=== PATIENT | female | born 1970 | race Hispanic/Latino ===

== ENCOUNTER 2019-01-01 12:42 | Emergency (ER) | payer BC, OTHER ==
[2019-01-01] MEDS ORDERED: BUPIVACAINE/PF 0.5% 30ML VIAL ONE (12:58)
[2019-01-01] MEDS ORDERED: LIDOCAINE HCL 1% 20 ML VIAL ONE (12:59)
[2019-01-01] MEDS ORDERED: CEFTRIAXONE SODIUM 1 GM ONE (13:45)
[2019-01-01] MEDS ORDERED: TETANUS/DIPHTHERIA TOXOID [ADULT] 0.5 ML VIAL IM ONE (13:45)
[2019-01-01] MEDS ORDERED: LIDOCAINE HCL-MPF 1% 2ML VIAL ONE (13:45)
== END 2019-01-01 14:43 | disposition home or self-care (01) ==
LOC: EDH 12:42
DX: S61.233A Puncture wound without foreign body of left middle finger without damage to nail, initial encounter (principal); Z72.0 Tobacco use; W45.8XXA Other foreign body or object entering through skin, initial encounter; Y93.G9 Activity, other involving cooking and grilling; Y92.69 Other specified industrial and construction area as the place of occurrence of the external cause; Y99.8 Other external cause status
CPT/HCPCS: 64450; 73140; 90471; 90714; 96372; 99284; J0696; J3490 ×2

== ENCOUNTER 2019-10-19 06:44 | Emergency (ER) | payer OTHER ==
[2019-10-19] MEDS ORDERED: DICYCLOMINE HCL 10 MG/ML 2ML AMP IM ONE (07:16)
[2019-10-19 07:44] LABS: BASOPHILS % (AUTO) 0.2 % (0.0-5.0); EOSINOPHILS % (AUTO) 2.8 % (0.0-8.0); HEMATOCRIT 39.5 % (36-48); LYMPHOCYTES % (AUTO) 26.5 % (21.0-51.0); MEAN CORPUSCULAR HGB CONC 33.9 g/dL (32.0-36.0); MEAN CORPUSCULAR VOLUME 88.6 fL (79-99); MONOCYTES % (AUTO) 5.8 % (3.0-13.0); NEUTROPHILS % (AUTO) 64.5 % (40.0-77.0); PLATELET COUNT (AUTO) 244 K/uL (130-400); RED BLOOD CELL COUNT(AUTO) 4.46 MIL/uL (4.00-5.50); RED CELL DISTRIBUTION WIDTH 12.3 % (11.0-15.5)
[2019-10-19 07:54] LABS: CREATININE 0.8 mg/dL (0.5-1.5); POTASSIUM 3.8 mmol/L (3.5-5.1)
[2019-10-19 08:00] LABS: ALBUMIN 3.6 g/dL (3.5-5.0); BILIRUBIN,TOTAL 0.3 mg/dL (0.2-1.0); TOTAL PROTEIN, SERUM 7.4 g/dL (6.0-8.3)
== END 2019-10-19 08:34 | disposition home or self-care (01) ==
LOC: EDH 06:44
DX: A09 Infectious gastroenteritis and colitis, unspecified (principal); M19.90 Unspecified osteoarthritis, unspecified site; Z98.890 Other specified postprocedural states
CPT/HCPCS: 36415; 80053; 85025; 96372; 99283; J0500

== ENCOUNTER 2021-01-23 20:58 | Emergency (ER) | payer OTHER ==
[~2021-01-23] VITALS: Ht 165.1 cm; Wt 90.7 kg
[2021-01-23 20:59] VITALS: BP 119/69
[2021-01-23 22:42] VITALS: BP 122/70
[2021-01-23 22:49] LABS: BASOPHILS % (AUTO) 0.4 % (0.0-5.0); HEMATOCRIT 36.4 % (36-48); MEAN CORPUSCULAR HEMOGLOBIN 30.6 pg (27.0-33.0); MEAN CORPUSCULAR HGB CONC 33.2 g/dL (32.0-36.0); MEAN CORPUSCULAR VOLUME 91.9 fL (79-99); MONOCYTES % (AUTO) 5.8 % (3.0-13.0); NEUTROPHILS % (AUTO) 54.6 % (40.0-77.0); PLATELET COUNT (AUTO) 227 K/uL (130-400); RED BLOOD CELL COUNT(AUTO) 3.96 MIL/uL (4.00-5.50); RED CELL DISTRIBUTION WIDTH 12.6 % (11.0-15.5); WHITE BLOOD COUNT (AUTO) 5.7 K/uL (4.8-10.8)
[2021-01-23] MEDS ORDERED: 0.9%NACL 1000ML 1,000 ML IV ONE ×2 (22:52→23:00)
[2021-01-23 22:57] LABS: APPEARANCE,URINE Turbid (CLEAR); BILIRUBIN,URINE Negative (NEGATIVE); COLOR,URINE Yellow (YELLOW); GLUCOSE, URINE (UA) Negative (NEGATIVE); KETONES,URINE Negative (NEGATIVE); LEUKOCYTE ESTERASE ,URINE Small (NEGATIVE); NITRATE,URINE Positive (NEGATIVE); OCCULT BLOOD,URINE Negative (NEGATIVE); PH,URINE 6.5 (5.0-8.0); PROTEIN,URINE Negative (NEGATIVE)
[2021-01-23 22:59] LABS: HCG,QUAL RESULT NEGATIVE (NEGATIVE)
[2021-01-23] MEDS ORDERED: MORPHINE 4 MG SYG IVP ONE (23:00)
[2021-01-23] MEDS ORDERED: ONDANSETRON 4MG INJ IVP ONE (23:00)
[2021-01-23 23:02] LABS: CREATININE 0.6 mg/dL (0.5-1.5); POTASSIUM 3.9 mmol/L (3.5-5.1)
[2021-01-23 23:04] LABS: ALBUMIN 3.5 g/dL (3.5-5.0); BILIRUBIN,TOTAL 0.3 mg/dL (0.2-1.0); TOTAL PROTEIN, SERUM 6.7 g/dL (6.0-8.3)
[2021-01-23 23:12] LABS: AMORPHOUS SEDIMENT,UR Moderate /LPF (None Seen); BACTERIA,URINE Many /HPF (None Seen); RBC,URINE None Seen /HPF (0-1)
[2021-01-23] MEDS ORDERED: IOHEXOL-350 75 ML VIAL IV ONE (23:19)
[2021-01-23] MEDS ORDERED: CEFTRIAXONE 1G VIAL IVP ONE (23:30)
[2021-01-24] MEDS ORDERED: CEFTRIAXONE 1G VIAL ONE (00:48)
[2021-01-24] MEDS ORDERED: DICY20TA2 PO (01:09)
[2021-01-24] MEDS ORDERED: MELO7.5T12 PO (01:09)
[2021-01-24] MEDS ORDERED: CYCL10TA7 PO (01:09)
[2021-01-24 01:46] VITALS: BP 117/68
== END 2021-01-24 02:00 | disposition home or self-care (01) ==
LOC: EDH 20:58
DX: K59.00 Constipation, unspecified (principal); N88.8 Other specified noninflammatory disorders of cervix uteri; E66.9 Obesity, unspecified; Z79.1 Long term (current) use of non-steroidal anti-inflammatories (NSAID)
CPT/HCPCS: 36415; 74177; 80053; 81001; 81025; 83690; 85025; 87077; 87088; 87186; 96361; 96374; 96375 ×2; 99285; J0696; J2270; J2405; J7030; Q9967

== ENCOUNTER 2022-05-17 20:36 | Emergency (ER) | payer OTHER ==
[~2022-05-17] VITALS: Ht 165.1 cm; Wt 97.5 kg
[~2022-05-17 20:36] MED LIST: CYCL-309 PO; DICY20TA2 PO; MELO7.5T12 PO
[2022-05-17 21:23] LABS: BASOPHILS % (AUTO) 0.2 % (0.0-5.0); EOSINOPHILS % (AUTO) 4.5 % (0.0-8.0); HEMATOCRIT 37.7 % (36-48); LYMPHOCYTES % (AUTO) 37.6 % (21.0-51.0); MEAN CORPUSCULAR HEMOGLOBIN 29.3 pg (27.0-33.0); MEAN CORPUSCULAR HGB CONC 34.2 g/dL (32.0-36.0); MEAN CORPUSCULAR VOLUME 85.7 fL (79-99); MONOCYTES % (AUTO) 6.3 % (3.0-13.0); PLATELET COUNT (AUTO) 231 K/uL (130-400); WHITE BLOOD COUNT (AUTO) 5.1 K/uL (4.8-10.8)
[2022-05-17 21:35] LABS: CREATININE 0.7 mg/dL (0.5-1.5); POTASSIUM 3.7 mmol/L (3.5-5.1)
[2022-05-17 21:44] LABS: ALBUMIN 3.6 g/dL (3.5-5.0); TOTAL PROTEIN, SERUM 6.9 g/dL (6.0-8.3)
[2022-05-17] MEDS ORDERED: PANTOPRAZOLE 40 MG/VIAL IVP STA (23:01)
[2022-05-17] MEDS ORDERED: LIDOCAINE HCL 2% VISCOUS 15 ML UDCUP PO ONE (23:30)
[2022-05-17] MEDS ORDERED: MAG/ALUM/SIMETH 30 ML UDCUP PO ONE (23:30)
[2022-05-18 01:01] VITALS: BP 124/85
[2022-05-18] MEDS ORDERED: PANT40TA54 PO (02:42)
== END 2022-05-18 02:49 | disposition home or self-care (01) ==
LOC: EDH 20:36
DX: K29.70 Gastritis, unspecified, without bleeding (principal); Z79.899 Other long term (current) drug therapy
CPT/HCPCS: 99285; 74176; 96374; 71045; 84484; 80053; 85025; 36415; 93005; C9113

== ENCOUNTER 2025-07-01 19:09 | Emergency (ER) | payer BC, OTHER ==
[~2025-07-01] VITALS: Ht 165.1 cm; Wt 1457.2 kg
[~2025-07-01 19:09] MED LIST changes: +PANT20TA PO; +PANT40TA54 PO
[2025-07-01 20:30] VITALS: BP 146/88; PULSE 72; RESP 18; TEMP 97.7; O2SAT 99
--- NOTE | 2025-07-01 21:09 | ERN ---
ED Note History of Present Illness Stated Complaint: APPROX 3 HRS AGO BILAT FOOT PAIN Chief Complaint: Lower Extremity Pain/Injury Time Seen by MD: 19:22 Dictation: This is a 54-year-old overweight female who presented to the emergency room complaining of chronic bilateral foot pain but got worse when she picked up and transported a huge box of tamales. History of any fall no deformity patient is able to ambulate without any problems. She takes tramadol for the pain and she already took 8 before coming to the ER. No history of any swelling. No feeling cold. No tingling numbness. Temperature 97.7 pulse 72 respirations 18 blood pressure 146/88 with a pulse oximetry of 99% on room air Allergies: Coded Allergies: No Known Allergies (Unverified Allergy, Unknown, 01/01/19) No Known Drug Allergies (Unverified Allergy, Unknown, 04/02/19) Home Meds Active Scripts Pantoprazole Sodium (Protonix) 20 Mg Tablet.dr, 20 MG PO BID, #60 TAB 0 Refills Prov:JULIO DINERO AGACNP 11/07/22 Pantoprazole Sodium (Pantoprazole Sodium) 40 Mg Tablet.dr, 20 MG PO BID for 30 Days, #30 TAB 0 Refills Prov:JULIO DINERO AGACNP 11/07/22 Cyclobenzaprine HCl (Cyclobenzaprine HCl) 10 Mg Tablet, 10 MG PO TIDP, #20 TAB 0 Refills Prov:MILLICENT MCNEILL MD 01/24/21 Meloxicam (Mobic) 7.5 Mg Tablet, 7.5 MG PO DAILY, #10 TAB 0 Refills Prov:MILLICENT MCNEILL MD 01/24/21 Dicyclomine HCl (Bentyl) 20 Mg Tab, 20 MG PO Q6HPRN, #20 TAB 0 Refills Prov:MILLICENT MCNEILL MD 01/24/21 Past Medical History Past Medical History: No Pertinent History Additional Past Medical Hx: GASTRITIS Surgical History: Other Surgical History Other: HERNIA REPAIR Family History: Negative Social History: Negative, Lives with family History: Not Applicable RN Note Reviewed/Agreed w/PFSH: Yes Review of System Dictation Constitutional: Negative for fever,chills, and weight loss Eyes: Negative for injury, pain,redness, and discharge ENT: Negative for injury,pain or swelling Cardiovascular: Negative for chest pain, palpitations, and edema Respiratory: Negative for shortness of breath, cough, and wheezing, Abdomen/GI: Negative for abdominal pain, nausea, vomiting, diarrhea, and constipation Back: Negative for injury and pain : Negative for injury, bleeding and discharge MS/Extremity: Negative for injury and deformity positive for pain in both feet Skin: Negative for rash, and discoloration Neuro: Negative for headache, weakness, numbness, tingling, and seizure Psych: Negative for suicide ideation, homicidal ideation, and hallucinations Initial Vital Sign VS Vital Signs Date Time Temp Pulse Resp B/P (MAP) Pulse Ox O2 Delivery O2 Flow Rate FiO2 07/01/25 19:16 97.7 72 18 146/88 99 Room Air 0 07/01/25 20:30 21 Physical Exam Dictation General: awake, alert, NAD obese female Head/Face: Normocephalic, atraumatic Eyes: PERRL, EOMI, vision at baseline ENT: oral cavity clear, TMs clear, no signs of infection Neck: Trachea midline, supple, no nuchal rigidity Cardiovascular: RRR, normal S1/S2, No MRGs, no JVD Respiratory: CTAB, no respiratory distress, No rales or wheezes Abdomen: Soft, non-tender, non-distended, normal bowel sounds, no guarding or rebound. Skin: Warm, dry, normal turgor, no rash MS/Extremity: Pulses equal, no cyanosis, neurovascular intact, FROM Neuro: COAx4, GCS 15, strength 5/5, CN 2-12 intact, normal cerebellar exam, normal gait, Psych: Normal behavior, mood, and affect normal Extremities-trace edema without any palpable cords, Homans sign is negative ED Course ED Course Orders Procedure Category Date Status Time Ketorolac PHA 07/01/25 Complete Tromethamine 30mg/Ml 21:00 Current Medications Medications (Trade) Dose Ordered Sig/[place] Route PRN Reason Start Time Stop Time Status Last Admin Dose Admin Ketorolac Tromethamine (toRADol) 30 mg ONCE ONCE IM 07/01/25 21:00 07/01/25 21:01 DC Vital Signs Date Time Temp Pulse Resp B/P (MAP) Pulse Ox O2 Delivery O2 Flow Rate FiO2 07/01/25 20:30 97.7 72 18 146/88 99 Room Air* 0 21 07/01/25 19:16 97.7 72 18 146/88 99 Room Air 0 Medical Decision Making MDM Differential diagnosis: Plantar fasciitis, neuropathy, musculoskeletal pain, tendinopathy, peripheral vascular disease This is a 54-year-old overweight female who presented to the emergency room complaining of chronic bilateral foot pain but got worse when she picked up and transported a huge box of tamales. History of any fall no deformity patient is able to ambulate without any problems. She takes tramadol for the pain and she already took 8 before coming to the ER. No history of any swelling. No feeling cold. No tingling numbness. Temperature 97.7 pulse 72 respirations 18 blood pressure 146/88 with a pulse oximetry of 99% on room air I discussed the differential diagnosis and this being a chronic medical problem with no obvious deformities difficulty walking, I explained to her that we would be happy to give her some pain medicine and for her to follow up with her primary care physician for further evaluation. Patient did not want any pain medicine and she stated that she would follow up with the primary tomorrow Previous outside records reviewed: Old ER visits. Risk of complication and/or morbidity or mortality of patient management: None Medications-Per medication reconciliation Need for hospitalization: Patient does not meet criteria for hospitalization. Need for emergency major/minor surgery: No There are no social concerns with this patient. Prescription drug management Prescriptions will include symptomatic care Patient's prior external medical records from other ER visits were reviewed by me as indicated. Prior testing and results from previous visits were reviewed. Prior tests were taken into account with medical decision making and resource utilization, independent historian/historians were used to obtain complete medical history. I independently interpreted the test that were performed, results were reviewed by me and considered findings on radiology if ordered. Medical management and examination interpretation discussions were had by me with other qualified healthcare professionals as indicated for the patient's care. Problem List Problem List: (1) Chronic pain of both feet (2) Arthritis of both feet DX & DISP Disposition: Discharge Departure Impression: Primary Impression: Chronic pain of both feet Additional Impression: Arthritis of both feet Condition: Stable Additional Instructions: Patient and the caregiver have been informed of all the diagnostic tests and the imaging conducted during the today's visit to the emergency room and has verbalized understanding of the results I have personally reviewed and interpreted all diagnostic exams performed here in the ER today as well as the v ital signs documented by the nursing staff. The patient is now being discharged to home and should follow up with the primary care physician or the specialist as directed by the ER staff. Referrals: SELF,REFERRAL (PCP) SELENE LOPEZ MD Jul 01, 2025 21:09
== END 2025-07-01 21:24 | disposition home or self-care (01) ==
LOC: EDH 19:09
DX: G89.29 Other chronic pain (principal); M79.671 Pain in right foot; M79.672 Pain in left foot; M19.071 Primary osteoarthritis, right ankle and foot; M19.072 Primary osteoarthritis, left ankle and foot; Z79.899 Other long term (current) drug therapy; Z79.1 Long term (current) use of non-steroidal anti-inflammatories (NSAID); Z98.890 Other specified postprocedural states; Z87.19 Personal history of other diseases of the digestive system
CPT/HCPCS: 99282